=== PATIENT | male | born 1970 ===

== ENCOUNTER 2019-01-14 08:52 | Day surgery (SDC) | payer OTHER ==
[~2019-01-14] VITALS: Ht 172.7 cm; Wt 191.3 kg
[2019-01-14] MEDS ORDERED: CATHFLO (09:49)
[2019-01-14] MEDS ORDERED: PROM12.512 PO (09:49)
[2019-01-14] MEDS ORDERED: ZIN220C PO (09:49)
[2019-01-14] MEDS ORDERED: NYST30CR2 TP (09:49)
[2019-01-14] MEDS ORDERED: LANTUS SQ (09:49)
[2019-01-14] MEDS ORDERED: FLO0.4C PO (09:49)
[2019-01-14] MEDS ORDERED: HEPA100D36 (09:49)
[2019-01-14] MEDS ORDERED: METO5TAB98 PO (09:49)
[2019-01-14] MEDS ORDERED: INSU200I (09:49)
[2019-01-14] MEDS ORDERED: DRON2.5C PO (09:49)
[2019-01-14] MEDS ORDERED: ATOR40TA7 PO (09:49)
[2019-01-14] MEDS ORDERED: FURO-149 PO (09:49)
[2019-01-14] MEDS ORDERED: ESCI20TA PO (09:49)
[2019-01-14] MEDS ORDERED: MIRT15TA PO (09:49)
[2019-01-14] MEDS ORDERED: MYLICON (09:49)
[2019-01-14] MEDS ORDERED: DOCU-148 PO (09:49)
[2019-01-14] MEDS ORDERED: ACET-2119 PO (09:49)
[2019-01-14] MEDS ORDERED: PROC-8 PO (09:49)
[2019-01-14] MEDS ORDERED: HYDR-4353 PO (09:49)
[2019-01-14] MEDS ORDERED: SENN-162 PO (09:49)
[2019-01-14] MEDS ORDERED: OMEP20TA23 PO (09:49)
[2019-01-14 10:40] LABS: BASOPHILS # (AUTO) 0.1 X10'3 (0-0.2); BASOPHILS % (AUTO) 0.7 % (0-1); EOSINOPHILS # (AUTO) 0.1 X10'3 (0-0.9); EOSINOPHILS % (AUTO) 1.1 % (0-6); HEMATOCRIT 30.9 % (42.0-52.0); HEMOGLOBIN 9.8 g/dl (14.0-17.9); LYMPHOCYTES % (AUTO) 7.7 % (21-51); MEAN CORPUSCULAR HEMOGLOBIN 27.1 PG (27.0-31.0); MEAN CORPUSCULAR HGB CONC 31.7 g/dL (33.0-36.5); MEAN CORPUSCULAR VOLUME 85.6 FL (78-98); MEAN PLATELET VOLUME 8.7 FL (7.4-10.4); MONOCYTES # (AUTO) 0.9 X10'3 (0-0.9); MONOCYTES % (AUTO) 7.3 % (2-12); NEUTROPHILS # (AUTO) 10.6 X10'3 (1.8-7.7); NEUTROPHILS % (AUTO) 83.2 % (42-75); PLATELET COUNT 376 X10'3 (140-440); RED BLOOD COUNT 3.61 X10'6 (4.70-6.10); RED CELL DISTRIBUTION WIDTH 16.9 % (11.5-14.5); WHITE BLOOD COUNT 12.8 X10'3 (4.5-11.0)
[2019-01-14 11:00] VITALS: BP 140/72
[2019-01-14] MEDS ORDERED: heparin 1,000 units/ml 10ml inj ICATH ONE (11:40)
[2019-01-14] MEDS ORDERED: midazolam 2 mg/2 ml injection IV PRN (11:40)
[2019-01-14] MEDS ORDERED: fentaNYL/PF 50MCG/1 ML 2ML syringe IV PRN (11:40)
[2019-01-14] MEDS ORDERED: ceFAZolin 2gm in dextrose, iso 100 ML IV ONE (11:40)
[2019-01-14] MEDS ORDERED: LIDOcaine 1%/PF 5ML 10 MG/ML VIAL SQ ONE (11:40)
[2019-01-14] MEDS ORDERED: cefazolin/dext.iso 2gm/50ml 50 ML IV ONE (11:55)
[2019-01-14] MEDS ORDERED: fentaNYL/PF 50MCG/1 ML 2ML syringe ONE (12:04)
[2019-01-14] MEDS ORDERED: LIDOcaine 1%/PF 5ML 10 MG/ML VIAL ONE (12:04)
[2019-01-14] MEDS ORDERED: heparin 1,000unit/ml 10ml vial 10 ML ONE (12:04)
[2019-01-14 12:45] VITALS: BP 147/88
[2019-01-14 13:00] VITALS: BP 146/79
[2019-01-14 13:15] VITALS: BP 138/79
[2019-01-14 13:30] VITALS: BP 142/79
== END 2019-01-14 13:45 | disposition home or self-care (01) ==
LOC: SSTAY O 08:52
PROVIDERS: ATTEND Radiology Diagnostic Radiology
DX: T82.41XA Breakdown (mechanical) of vascular dialysis catheter, initial encounter (principal); E11.22 Type 2 diabetes mellitus with diabetic chronic kidney disease; I12.0 Hypertensive chronic kidney disease with stage 5 chronic kidney disease or end stage renal disease; N18.6 End stage renal disease; E78.5 Hyperlipidemia, unspecified; J44.9 Chronic obstructive pulmonary disease, unspecified; E66.9 Obesity, unspecified; Z68.44 Body mass index [BMI] 60.0-69.9, adult; Z79.4 Long term (current) use of insulin; Z79.899 Other long term (current) drug therapy; Y83.8 Other surgical procedures as the cause of abnormal reaction of the patient, or of later complication, without mention of misadventure at the time of the procedure; Y92.89 Other specified places as the place of occurrence of the external cause
CPT/HCPCS: 36415; 36581; 77001; 82948; 85025; C1750; C1769; J1644; J3010; A9270